=== PATIENT | female | born 1995 | race Caucasian/White ===

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

== ENCOUNTER 2017-07-23 19:01 | Emergency (ER) | payer OTHER ==
[~2017-07-23] VITALS: Ht 170.2 cm; Wt 129.1 kg
[2017-07-23 19:13] VITALS: BP 140/79
[2017-07-23] MEDS ORDERED: EYE DROP TEARS15 ML LEFT EYE (21:20)
== END 2017-07-23 21:36 | disposition home or self-care (01) ==
LOC: EME 19:01
DX: H11.32 Conjunctival hemorrhage, left eye (principal); Z91.040 Latex allergy status
CPT/HCPCS: 99281; 99284